=== PATIENT | female | born 1965 | race Caucasian/White ===

== ENCOUNTER 2021-09-16 13:33 | Outpatient (CLI) | payer OTHER, SELFPAY | END 2021-09-16 13:34 | disposition home or self-care (01) | LOC: ANHAUDASC 13:34 | PROVIDERS: PCP Internal Medicine; Visit Provider Otolaryngology | DX: H93.19 Tinnitus, unspecified ear (principal); H90.3 Sensorineural hearing loss, bilateral | CPT/HCPCS: 92557; 92567 ==